=== PATIENT | female | born 1980 | race Caucasian/White ===

== ENCOUNTER 2024-07-20 11:09 | Outpatient (AMB) | payer BC, OTHER, SELFPAY ==
[2024-07-20 11:46] VITALS: BP 111/72; PULSE 83; RESP 16; TEMP 36.7; O2SAT 98; BMI 25.7
--- NOTE | 2024-07-20 11:46 | AMB.GYNCLNOT ---
Vital Signs 07/20/24 11:46 Height 1.6 m Height Method Stated Weight 65.941 kg Weight Measurement Method Standing Scale BMI 25.7 BP 111/72 Blood Pressure Source Automatic Cuff Blood Pressure Location Right Upper Arm Position Sitting Respiration 16 Pulse 83 Pulse Source Monitor Temp 98.0 F Temp Source Oral Pulse Oximetry (%) 98 Oxygen Delivery Method Room Air Allergies/Home Meds Allergies & Medications Allergies No Known Allergies Allergy (Verified 07/20/24 11:48) Medication Reconciliation Unobtainable 07/20/24 [History Confirmed 07/20/24] Intake Visit Data Collection New Patient or Established: New Patient (never been to [facility]) Reason for Visit:: annual wellness Seen by Clinical Staff ONLY (RN/MA): No Environmental Field Team Member Required: No Do You Feel Safe at Home: Yes Authorities Contacted: N/A PCP or OBGYN visit in last 3 months: No Hx Now: No Are you currently on any form of Control: No Pain Present Currently: No Pain Scale Used: Peña-Rosenthal/Numerical Pain scale:: 0 Smoking Status Smoking Status: Never smoker 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 Both patient's mother and aunt are positive for breast cancer. Her brother has Hodgkin's disease. Questionnaires Covid-19 Vaccine Questionnaire Has patient been vacinated for Covid-19 Have you been vacinated for Covid-19: Yes PHQ-9 PHQ-2 Over the last 2 weeks, how often have you been bothered by any of the following problems? 1. Little interest or pleasure in doing things: not at all 2. Feeling down, depressed, or hopeless: not at all Total score: 0 PHQ-9 3. Trouble falling or staying asleep, or sleeping too much: Not at all 4. Feeling tired or having little energy: Not at all 5. Poor appetite or overeating: Not at all 6. Feeling bad about yourself - or that you are a failure or have let yourself or your family down: Not at all 7. Trouble concentrating on things, such as reading the newspaper or watching television: Not at all 8. Moving or speaking so slowly that other people could have noticed? - Or the opposite - being so fidgety or restless that you have been moving around a lot more than usual: not at all 9. Thoughts that you would be better off or of hurting yourself in some way: Not at all Total score: 0 Source: Developed by Drs. Daniel Newton, Susie Espinoza, Armando Viera and colleagues, with an educational suzette from [employer] Depression screen completed yes Social History Living Situation History Marital Status: Lives With: Family Housing: House Housing Other:: 3 girls. Cora 13, Gregorio 12, Nanda 8 works part-time at [employer] Tobacco History Smoking Status: Never smoker Second Hand Smoke Exposure: No Alcohol History Alcohol Intake: Never Domestic Abuse History Do You Feel Safe at Home: Yes History of Present Illness HPI Narrative Patient is a 43-year-old -0-1-3 presents for an annual exam. 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 Her 's had a vasectomy for contraception. Her 3 daughters are doing well. Her daughter Cora is 13, G her 's name is Augustin and he is a hunter. Suraj is 12 and her daughter Nanda is 8. Patient's mother and aunt both had breast cancer and she has been tested and is negative for BRCA1 BRCA2. She was to see me in [place]. She brought all her old records with her. Today she has no gynecological complaints specifically no hot flashes night sweats no abnormal cycles no urinary complaints. Her cycles are regular monthly they used to be about 2 days now they are 3-4 but they are still very manageable. Her 's name is Augustin and he is a hunter. Menstrual character: normal Gynecologic pain symptoms: Reports none Menopause concerns/symptoms: Reports none Review of Systems Review of Systems Narrative Review of Systems: No hot flashes, night sweats incontinence. No abnormal uterine bleeding. No abnormal cervical discharge. Exam General General Appearance: alert, in no apparent distress, comfortable, cooperative, healthy appearing, well developed and well groomed Chest Chest inspection: Present normal inspection and symmetric chest wall rise Exp Chest Breast: bilateral: other (Normal breast exam bilaterally) Resp Respiratory exam: Present normal lung sounds bilaterally Card Cardiovascular exam: Present regular rate, normal rhythm and normal heart sounds Abdominal Abdominal exam: Present soft and normal bowel sounds External exam: Present normal external exam (No significant pelvic organ defects) Speculum exam: Present normal speculum exam Bimanual exam: Present normal bimanual exam Extremities Extremities exam: Present normal inspection and full ROM Psych Psychiatric exam: Present normal affect and normal mood Skin Skin exam: Present warm, dry, intact and normal color Office Procedures OB Clinic LOC & Office Proc's Nursing/Assessment Patient Status: Initial/New Patient OB Clinic Nursing Assessment: Medication Reconciliation, Update PMH in EMR and Vital Signs OB Clinic Coordination of Care: Complex Care and Chronic Disease 1-5, Consent,records obtained, informed consent, Education Simp Pt/Fam, Lab and Imaging orders, Results/Orders obtained and Staff clarify orders Miscellaneous Interventions: Breast Exam and Pelvic/Pap Smear Set up New Patient Charge New Patient Point Assignment: 1154 New Patient Point Charge: REGISTERED DENTAL HYGIENIST Level 4 ([id number]) In Clinic Procedures Pap Smear: Yes Assessment & Plan Diagnosis / Problem List (1) Encounter for Routine Gynecological Examination: Qualifiers: Gynecological examination findings: abnormal findings ABSENT Qualified Code(s): Z01.419 - Encounter for gynecological examination (general) (routine) without abnormal findings Assessment and Plan: Pap with high-risk HPV was performed breast exam done encouraged. The patient had a mammogram in December and is not due for one now. She will follow-up in 1 year and call for any problems. 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
== END 2024-07-20 12:29 | disposition home or self-care (01) ==
LOC: HODSOBC 11:09
PROVIDERS: PCP Internal Medicine; Referring Provider Internal Medicine; Supervising Provider Obstetrics & Gynecology; Visit Provider Obstetrics & Gynecology
DX: Z01.419 Encounter for gynecological examination (general) (routine) without abnormal findings (principal); Z11.51 Encounter for screening for human papillomavirus (HPV); Z80.3 Family history of malignant neoplasm of breast
CPT/HCPCS: 99204; Q0091; G0463